=== PATIENT | male | born 1960 | race Caucasian/White ===

== ENCOUNTER → 2017-02-14 | Outpatient (CLI) | payer BC ==
[2017-02-14 19:51] LABS: Basophils % (A) 1 %; CH 33.5; CHCM 33.1; Eosinophils # (A) 0.1 k/uL (0-0.7); Eosinophils % (A) 1 %; HCT 45.4 % (39.0-53.0); HDW 2.27; HGB 15.2 gm/dL (13.0-17.5); Luc # (Auto) 0.13; Luc % (Auto) 4; Lymphocytes % (A) 29 %; MCH 34.1 pg (25.0-35.0); MCHC 33.6 g/dL (31.0-37.0); MCV 101.6 fL (80.0-100.0); Macrocytosis Slight; Mean Platelet Volume 7.6; Monocytes # (A) 0.3 k/uL (0-1.0); Monocytes % (A) 8 %; Neutrophils # (A) 1.9 k/uL (1.3-7.7); Neutrophils % (A) 57 %; RBC 4.47 m/uL (4.30-5.90); RDW 12.8 % (11.5-15.5); WBC 3.4 k/uL (3.8-10.6); WBC (Perox) 3.49
[2017-02-14 20:11] LABS: ALT 32 U/L (21-72); AST 22 U/L (17-59); Alkaline Phosphatase 72 U/L (38-126); Anion Gap 9 mmol/L; Blood Urea Nitrogen 15 mg/dL (9-20); Calcium 9.7 mg/dL (8.4-10.2); Carbon Dioxide 30 mmol/L (22-30); Chloride 101 mmol/L (98-107); Cholesterol 275 mg/dL (<200); Glucose 103 mg/dL (74-99); HDL Cholesterol 102 mg/dL (40-60); Non-African American GFR(MDRD) >60 (>60 ml/min/1.73 sqM); Potassium 4.6 mmol/L (3.5-5.1); Sodium 140 mmol/L (137-145); Total Bilirubin 1.2 mg/dL (0.2-1.3); Total Protein 6.9 g/dL (6.3-8.2); Triglycerides 91 mg/dL (<150)
== END ==
LOC: MMGSC 10:42
PROVIDERS: ATTEND Family Medicine
DX: Z00.00 Encounter for general adult medical examination without abnormal findings (principal); I10 Essential (primary) hypertension; Z12.5 Encounter for screening for malignant neoplasm of prostate
CPT/HCPCS: 84439; 80061; 80053; 84443; 85025; 36415; G0103

== ENCOUNTER → 2017-05-15 | Outpatient (CLI) | payer BC | END | disposition home or self-care (01) | LOC: MMGSC 15:19 | PROVIDERS: ATTEND Family Medicine | DX: N39.0 Urinary tract infection, site not specified (principal) | CPT/HCPCS: 87086 ==

== ENCOUNTER → 2017-05-16 | Outpatient (CLI) | payer BC ==
[2017-05-21 15:10] LABS: Anabasine Urine <2.0 ng/mL (<2.0)
== END | disposition home or self-care (01) ==
LOC: MMGSC 16:44
PROVIDERS: ATTEND Family Medicine
DX: Z13.9 Encounter for screening, unspecified (principal)
CPT/HCPCS: 80323

== ENCOUNTER 2018-02-18 12:00 | Day surgery (SDC) | payer BC ==
[2018-02-14 16:14] VITALS: BMI 23.6
[2018-02-18] MEDS: LACTATED RINGERS 1,000 ML IV SCH ×2 (13:30→13:48)
[2018-02-18 13:31] VITALS: RESP 16; TEMP 96.7
[2018-02-18] MEDS ORDERED: PROPOFOL 10 MG/ML 20 ML VIAL IV ONE (13:49)
--- NOTE | 2018-02-18 14:17 | P.PCN ---
Date of Procedure: 02/18/18 Procedure(s) Performed: Procedure: Esophagogastroduodenoscopy and biopsy. Preoperative diagnosis: Chronic reflux symptoms requiring PPI therapy. Postoperative diagnosis: 1. Small sliding hiatal hernia with no obvious esophagitis or complicated reflux disease. 2. Mild antral gastritis. 3. Multiple biopsies obtained from the duodenum, antrum and esophagus. Preparation sedation: Was provided by anesthesia. Brief clinical history: The patient is a 57-year-old male who is referred for this evaluation because of chronic reflux symptoms requiring PPI therapy. The patient had a colonoscopy with la for screening for neoplasia in January 2015 that revealed an adenomatous diminutive polyp in the cecum and he is due to have a repeat exam in 2019. He had no prior upper endoscopy. No other alarm symptoms. Procedure: With the patient on his left lateral decubitus position and after informed consent and adequate sedation, I passed the Olympus-GIF 160 video upper endoscope through the cricopharyngeus down the esophagus. GE junction was around 41 cm from the incisors and there was a small sliding hiatal hernia. The esophagus did not show any obvious erosions, ulcers, strictures or Boyd 's esophagus. The endoscope was then passed into the stomach which was insufflated with air and inspected in detail including the retroflex view in the cardia. There was some mottling and erythema in the antrum but no ulcers or erosions. Pyloric channel, duodenal bulb, post bulbar area and descending duodenum appeared within normal limits. Because of his symptoms, I obtained biopsies from the duodenum, antrum and esophagus then the endoscope was withdrawn. The patient tolerated the procedure well. Plan: The patient was reassured. He Will continue antireflux diet and measures and his current medical therapy and follow-up with you as planned. Further plans can be made based on his course and biopsy results. I will be happy to see in the office based on his course.
[2018-02-18 14:29] VITALS: PULSE 76
[2018-02-18 14:42] VITALS: BP 131/91
== END 2018-02-18 14:52 | disposition home or self-care (01) ==
LOC: ORWHC2ENDO 12:00
DX: K29.50 Unspecified chronic gastritis without bleeding (principal); K44.9 Diaphragmatic hernia without obstruction or gangrene; K21.9 Gastro-esophageal reflux disease without esophagitis; I47.1 Supraventricular tachycardia; Z87.891 Personal history of nicotine dependence; Z79.82 Long term (current) use of aspirin; Z79.891 Long term (current) use of opiate analgesic; Z79.899 Other long term (current) drug therapy
CPT/HCPCS: 88305; 43239; J2704

== ENCOUNTER 2018-05-01 10:15 | Observation (INO) | payer BC ==
[2018-04-29 10:23] VITALS: BMI 24.6
--- NOTE | 2018-04-30 20:24 | HP ---
HISTORY AND PHYSICAL DATE OF SURGERY: 05/01/2018 Eladio Lima is a 57-year-old patient seen with a displaced left ankle lateral malleolar fracture. I recommended open reduction, internal fixation. The procedure, risks, complications, benefits and recovery were discussed. He was agreeable. Consent was obtained. PAST MEDICAL HISTORY: Noncontributory. PAST SURGICAL HISTORY: Noncontributory. DAILY MEDICATIONS: None reported. ALLERGIES: NONE KNOWN. SOCIAL HISTORY: The patient denies tobacco use. PHYSICAL EVALUATION OF THE LEFT ANKLE: He has tenderness along the lateral malleolus. There is some swelling as well as some ecchymosis laterally. He has limited range of motion with pain. No tenderness along the medial malleolus. Achilles intact. Homans and Zachary negative. He is able to move his toes with no pain. Distal neurovascular exam is intact. Left ankle radiographs revealed a displaced lateral malleolar fracture. IMPRESSION: Displaced left ankle lateral malleolar fracture. PLAN: Open reduction, internal fixation, left ankle lateral malleolar fracture. MMJOON / MELISSAN: [id number] /
[~2018-05-01 10:15] MED LIST: ceFAZolin IN SWFI 2 GM/20 ML SYRINGE IVP ONE
[2018-05-01] MEDS ORDERED: LACTATED RINGERS 1,000 ML IV ONE (11:12)
[2018-05-01] MEDS ORDERED: LIDOCAINE 1% 20 ML VIAL (10MG/ML) FOR IV START INTRADERMA ONE (11:13)
[2018-05-01] MEDS ORDERED: ONDANSETRON 4 MG/2 ML VIAL ONE (11:18)
[2018-05-01] MEDS ORDERED: ONDANSETRON 4 MG/2 ML VIAL IVP ONE (11:20)
[2018-05-01] MEDS ORDERED: fentaNYL (PF) 50 MCG/ML 2 ML AMP ONE ×2 (11:23→12:26)
[2018-05-01] MEDS ORDERED: MIDAZOLAM 2 MG/2 ML VIAL ONE ×2 (11:23→12:26)
[2018-05-01] MEDS ORDERED: LIDOCAINE 1% INJ 10MG/ML (20 ML MDV) ONE ×3 (11:24→12:26)
[2018-05-01] MEDS ORDERED: fentaNYL (PF) 50 MCG/ML 2 ML AMP IVP ONE (11:57)
--- NOTE | 2018-05-01 11:59 | P.ONQ ---
Anesthesiology Proc Note - PNB - Peripheral Nerve Block Performed Left Adductor Canal Single Time Out Performed: Yes Indication: Dx/Pain Location (left ankle pain), Requested by physician Sedation Type: Awake Preparation: Sterile Prep Needle Types: On-Q Needle Size: 50mm (2") Technique: Ultrasound Injectate: Other (see comment) (7.5ml 0.5% Bupivacaine + 7.5ml 2% Lidocaince with 1:200,000 epi) Blood Aspirated: No Pain Paresthesia on Injection Noted: No Resistance on Injection: Normal Events: Uneventful and Well Tolerated
--- NOTE | 2018-05-01 12:02 | P.ONQ ---
Anesthesiology Proc Note - PNB - Peripheral Nerve Block Performed Left Popliteal Single Time Out Performed: Yes Procedure Start Time: 11:30 Indication: Analgesia, Dx/Pain Location (left ankle pain), Requested by physician Needle Size: 50mm (2") Technique: Ultrasound Injectate: Other (see comment) (15ml 0.5% Bupivacaine + 15ml 2% Lidocaine with 1 :200,000 epi) Blood Aspirated: No Pain Paresthesia on Injection Noted: No Resistance on Injection: Normal Events: Uneventful and Well Tolerated
[2018-05-01] MEDS ORDERED: PROPOFOL 10 MG/ML 20 ML VIAL IV ONE (12:26)
[2018-05-01] MEDS ORDERED: ceFAZolin 1,000 MG in SODIUM CHLORIDE 0.9% 1,000 ML IRRIGATION ONE (12:53)
[2018-05-01] MEDS ORDERED: ONDANSETRON 4 MG/2 ML VIAL IVP PRN ×2 (13:40→14:26)
[2018-05-01] MEDS ORDERED: HYDROcodone/APAP 5-325MG 1 EACH TAB PO PRN ×2 (13:40)
[2018-05-01] MEDS ORDERED: HYDROmorphone 0.5 MG/0.5 ML SYRINGE IVP PRN ×2 (13:40)
[2018-05-01] MEDS ORDERED: hydrOXYzine PAMOATE 25 MG CAP PO PRN (13:40)
--- NOTE | 2018-05-01 13:40 | P.OP ---
Date of Procedure: 05/01/18 Preoperative Diagnosis: Left ankle displaced lateral malleolar fracture Postoperative Diagnosis: Same Procedure(s) Performed: Open reduction and internal fixation left ankle lateral malleolus Implants: Synthes one third semitubular plate with 6 appropriate length screws Anesthesia: GETA, regional (Adductor canal block and popliteal block) Surgeon: Frederick Em Estimated Blood Loss (ml): 15 Pathology: none sent Condition: stable Indications for Procedure: 57-year-old patient seen with a displaced left ankle lateral malleolar fracture. After treatment options were discussed, he elected to proceed with recommended surgical intervention. Operative Findings: see description of procedure Description of Procedure: The patient was taken to the operative suite. The patient had received adductor canal and popliteal blocks. The patient underwent general anesthetic. A well-padded tourniquet placed proximal left lower extremity. The patient received preoperative IV box. The left lower extremity was prepped and draped in the normal sterile orthopedic fashion. The extremity was elevated and tourniquet insufflated to 300. An incision was made over the lateral malleolar sharply through skin. I dissected down to the lateral malleolus. Identify the displaced fracture. The hematoma was removed. The fracture was reduced and secured. I chose a 6 hole one third semitubular plate and appropriately contoured it with a plate pimentel. Enough fit nicely over the lateral malleolus. It was secured and appropriate drill holes were made through all 6 holes appropriate length screws were inserted all having good bite and purchase. The bone clamp was removed. I checked the entire construct under AP lateral and oblique intraoperative imaging and noted good anatomic alignment of fracture with good positioning of the hardware. I pain spot films to document this. The wound was irrigated with saline solution. The subcutaneous tissues were approximate 2-0 Vicryl. The skin is proximal skin jorge. Sterile dressings were applied. The tourniquet was released with immediate capillary refill the foot and all toes noted. I applied a modified bulky Berrios both ankle in neutral position. The patient was then awakened, transferred to a bed and then recovery in stable condition.
--- NOTE | 2018-05-01 13:43 | XR ---
Fluoroscopy History: ORIF LT ANKLE 3 SECS FL TIME. ORIF LT ANKLE. DR. DE LA O. 3 IMAGES SCANNED.
[2018-05-01] MEDS ORDERED: HYDROcodone/APAP 7.5-325MG 1 EACH TAB PO PRN (14:24)
[2018-05-01] MEDS: LACTATED RINGERS 1,000 ML IV SCH (15:08)
[2018-05-01] MEDS ORDERED: LORazepam 2 MG/ML INJ IV PRN ×3 (15:25)
[2018-05-01] MEDS ORDERED: THIAMINE 100 MG/ML 2 ML VIAL IM STA (15:25)
--- NOTE | 2018-05-01 15:28 | P.CONS ---
History of Present Illness - Reason for Consult Consult date: 05/01/18 SVT Requesting physician: Frederick Em - Chief Complaint ankle pain - History of Present Illness Patient is a 57-year-old male past medical history of GERD, SVT requiring cardioversion 2, and alcohol abuse who presented for elective left ankle ORIF. He had been playing catch on with his when he lost balance and heard a crack. He has been wearing a splint since then had surgery scheduled. He has SVT and has required cardioversion to of the 8 times with the last being in January of this year. He chronically takes verapamil. Patient seen and examined at bedside. He complains of left ankle pain that is worse when ambulating. He's been using crutches to ambulate. He has not been sick or ill recently. He denies any chest pain, shortness of breath, nausea, vomiting, diarrhea, constipation, or dysuria. He is not having any heart palpitations currently. He tolerated procedure well. He is currently pain- free and not having any nausea. He sees Dr. Velasquez saw her last just a few days ago for clearance. Review of Systems Positives: + Left ankle pain Pertinent positives and negatives as discussed in HPI, a complete review of systems was performed and all other systems are negative. Past Medical History Past Medical History: GERD/Reflux, Supraventricular Tachycardia (SVT) Additional Past Medical History / Comment(s): ANTIBIOTIC FOR ACNE., FX LEFT ANKLE -HAS SPLINT AND USING CRUTCHES. History of SVT has required cardioversion to opiate times he is on his SVT. History of Any Multi-Drug Resistant Organisms: None Reported Past Surgical History: No Surgical Hx Reported Additional Past Surgical History / Comment(s): some kind of surgery as a toddler -not sure what. COLONOSCOPY. ORIF left ankle Past Anesthesia/Blood Transfusion Reactions: No Reported Reaction Past Psychological History: No Psychological Hx Reported Smoking Status: Former smoker Past Alcohol Use History: Daily Additional Past Alcohol Use History / Comment(s): DRINKS 2 BEERS / DAILY Past Drug Use History: None Reported Additional History: Lives with his , works as an journeyman electrician, currently has been using crutches. - Past Family History Mother Family Medical History: Cancer, Coronary Artery Disease (CAD) Additional Family Medical History / Comment(s): PROSTATE CANCER X2, 4 vessel coronary artery bypass grafting Medications and Allergies Home Medications Medication Instructions Recorded Confirmed Type Aspirin EC [Ecotrin Low Dose] 81 mg PO DAILY 10/30/17 05/01/18 History HYDROcodone/APAP 7.5-325MG [[place] 1 tab PO QID PRN 10/30/17 05/01/18 History 7.5-325] Omeprazole 20 mg PO DAILY 10/30/17 05/01/18 History Verapamil HCl [Verapamil ER] 240 mg PO DAILY 12/21/17 05/01/18 History Cephalexin [Keflex] 500 mg PO Q12HR 04/29/18 05/01/18 History Ibuprofen [Advil] 400 mg PO DIRECTED PRN 04/29/18 05/01/18 History Naproxen (Unknown Dose) 1 tab PO DAILY PRN 04/29/18 05/01/18 History Allergies Allergy/AdvReac Type Severity Reaction Status Date / Time No Known Allergies Allergy Verified 05/01/18 11:05 Physical Exam Osteopathic Statement: *. No significant issues noted on an osteopathic structural exam other than those noted in the History and Physical/Consult. Vitals: Vital Signs Temp Pulse Resp BP Pulse Ox 05/01/18 14:18 82 14 120/80 97 05/01/18 14:03 82 14 136/79 96 05/01/18 13:48 78 14 114/73 97 05/01/18 13:33 74 16 109/62 100 05/01/18 12:00 92 16 124/83 97 05/01/18 11:10 98.0 F 98 16 153/90 98 Intake and Output 05/01/18 05/01/18 05/01/18 06:59 14:59 22:59 Intake Total 701 Output Total 15 Balance 686 Intake: IV 701 Output: Estimated Blood Loss 15 General: non toxic, no distress, appears at stated age, normal weight Derm: no unusual rashes/lesions no unusual ecchymoses, warm, dry, left ankle with dressing in place Head: atraumatic, normocephalic, symmetric Eyes: EOMI, no lid lag, anicteric sclera, pupils equal round reactive to light ENT: Nose and ears atraumatic, no thrush, no pharyngeal erythema Neck: No thyromegaly, no cervical lymphadenopathy, trachea midline, supple Mouth: no lip lesion, mucus membranes moist Cardiovascular: S1S2 reg, no murmur, positive posterior tibial pulse bilateral, no edema, capillary refill less than 2 seconds Lungs: CTA bilateral, no rhonchi, no rales , no accessory muscle use Abdominal: soft, nontender to palpation, no guarding, no appreciable organomegaly, normal bowel sounds Ext: no gross muscle atrophy, muscle strength 5 out of 5 in bilateral upper extremity and right lower extremity, unable to test left lower extremity due to recent surgery and nerve block, no contractures, Neuro: CN II-XI grossly intact, light touch intact bilateral first remedies and right lower extremity, light touch not intact left lower extremity but has abductor canal nerve block., finger to nose within normal limits, Psych: Alert, oriented, appropriate affect Results Labs: Labs reveal sodium 138, potassium 4.2, chloride 99, carbon dioxide 28, BUN 18, creatinine 1 White blood cell count 5.9, hemoglobin 15.9 hematocrit 47.9 platelets 339 Assessment and Plan Assessment: Left ankle fracture status post ORIF -Pain control -Orthopedic recommendations -PT/OT -DVT prophylaxis per orthopedic surgery SVT -Telemetry -Resume verapamil -Repeat electrolytes in a.m. prior to discharge GERD -Resume PPI Alcohol abuse -CIWA protocol Surrogate decision-maker: CODE STATUS:full DVT prophylaxis: scd Discussed with: Patient, nursing Anticipated discharge: 24-[address]: Home A total of 35 minutes was spent on the care of this complex patient more than 50 % of the time was spent in counseling and care coordination.
[2018-05-01] MEDS ORDERED: THIAMINE 100 MG TAB PO SCH (17:00)
[2018-05-01 19:24] VITALS: RESP 18
[2018-05-01] MEDS: ceFAZolin IN SWFI 2 GM/20 ML SYRINGE IVP SCH (20:24)
[2018-05-02 00:18] VITALS: BP 154/93; PULSE 76; TEMP 98.6
[2018-05-02] MEDS: HYDROmorphone 0.5 MG/0.5 ML SYRINGE IVP PRN ×3 (02:09→07:31)
[2018-05-02] MEDS: LACTATED RINGERS 1,000 ML IV SCH (02:10)
[2018-05-02] MEDS: ceFAZolin IN SWFI 2 GM/20 ML SYRINGE IVP SCH (04:27)
[2018-05-02] MEDS: HYDROcodone/APAP 7.5-325MG 1 EACH TAB PO PRN ×2 (05:28→10:30)
[2018-05-02 07:43] LABS: HCT 41.1 % (39.0-53.0); HGB 13.4 gm/dL (13.0-17.5); MCH 32.3 pg (25.0-35.0); MCHC 32.5 g/dL (31.0-37.0); MCV 99.4 fL (80.0-100.0); Mean Platelet Volume 6.6; Platelet Count 266 k/uL (150-450); RBC 4.13 m/uL (4.30-5.90); RDW 11.9 % (11.5-15.5); WBC 6.4 k/uL (3.8-10.6)
[2018-05-02 08:19] LABS: Anion Gap 10 mmol/L; Blood Urea Nitrogen 16 mg/dL (9-20); Calcium 9.1 mg/dL (8.4-10.2); Carbon Dioxide 32 mmol/L (22-30); Chloride 95 mmol/L (98-107); Glucose 118 mg/dL (74-99); Sodium 137 mmol/L (137-145)
[2018-05-02] MEDS ORDERED: PANTOPRAZOLE 40 MG TABLET PO SCH (09:00)
[2018-05-02] MEDS ORDERED: VERAPAMIL SR 240 MG TABLET.ER PO SCH (09:00)
--- NOTE | 2018-05-02 09:14 | P.PN ---
Subjective Progress Note Date: 05/02/18 Principal diagnosis: Ankle pain Patient is a 57-year-old male past medical history of GERD, SVT requiring cardioversion 2, and alcohol abuse who presented for elective left ankle ORIF. He had been playing catch on with his when he lost balance and heard a crack. He has been wearing a splint since then had surgery scheduled. He has SVT and has required cardioversion to of the 8 times with the last being in January of this year. He chronically takes verapamil. No issues overnight after surgery other than pain control when block wore off. Patient seen and examined at bedside. He denies any shortness of breath, chest pain or palpitations. He reports nausea that last about 10 minutes when he receives Dilaudid, but he has otherwise not been nauseous. He has no other complaints currently and is anxious to go home. Objective - Vital Signs Vital signs: Vital Signs Temp 98.6 F 05/02/18 00:17 Pulse 76 05/02/18 00:17 Resp 18 05/02/18 00:17 BP 154/93 05/02/18 00:17 Pulse Ox 98 05/02/18 00:17 Intake & Output 05/01/18 05/02/18 05/02/18 18:59 06:59 18:59 Intake Total 701 1280 Output Total 15 350 Balance 686 930 Intake: IV 701 Intake, IV Titration 1280 Amount Lactated Ringers 1,000 ml 1280 @ 80 mls/hr IV .[id number] RYAN Rx#:[id number] Output: Urine 350 Estimated Blood Loss 15 Other: # Voids 3 - Exam General: non toxic, no distress, appears at stated age Derm: warm, dry, left ankle with cast in place Head: atraumatic, normocephalic, symmetric Eyes: EOMI, no lid lag, anicteric sclera Cardiovascular: S1S2 reg, no murmur, positive posterior tibial pulse bilateral, Lungs: CTA bilateral, no rhonchi, no rales , no accessory muscle use Abdominal: soft, nontender to palpation, no guarding, no appreciable organomegaly Ext: no gross muscle atrophy, no edema right LE, no contractures Neuro: CN II-XI grossly intact, no focal neuro deficits, touch intact left toes able to move toes Psych: Alert, oriented, appropriate affect - Labs CBC & Chem 7: 05/02/18 07:12 05/02/18 07:12 Labs: Abnormal Lab Results - Last 24 Hours (Table) 05/02/18 Range/Units 07:12 RBC 4.13 L (4.30-5.90) m/uL Assessment and Plan Assessment: Left ankle fracture status post ORIF -Pain control -Orthopedic recommendations -PT/OT -DVT prophylaxis per orthopedic surgery - resume home ASA when okay with ortho SVT -D/C Telemetry -verapamil GERD - PPI Alcohol abuse -CIWA protocol Medically stable for discharge. Resume home verapamil and Omeprazole. Resume home ASA when Okay with ortho DVT prophylaxis: scd Discussed with: Patient, nursing Anticipated discharge: today Anticipated discharge place: Home A total of 20 minutes was spent on the care of this complex patient more than 50 % of the time was spent in counseling and care coordination.
--- NOTE | 2018-05-02 10:46 | P.PN ---
Subjective Progress Note Date: 05/02/18 Principal diagnosis: Status post ORIF left lateral malleolus fracture Patient exam today bedside, he is resting comfortably. Pain is currently controlled, he did have some increase in pain when the block initially wore off. Denies any chest pain or shortness of breath. Objective - Vital Signs Vital signs: Vital Signs Temp 98.6 F 05/02/18 00:17 Pulse 76 05/02/18 00:17 Resp 18 05/02/18 00:17 BP 154/93 05/02/18 00:17 Pulse Ox 98 05/02/18 00:17 Intake & Output 05/01/18 05/02/18 05/02/18 18:59 06:59 18:59 Intake Total 701 1280 Output Total 15 350 Balance 686 930 Intake: IV 701 Intake, IV Titration 1280 Amount Lactated Ringers 1,000 ml 1280 @ 80 mls/hr IV .[id number] RYAN Rx#:[id number] Output: Urine 350 Estimated Blood Loss 15 Other: # Voids 3 - Exam Left lower extremity: Postop splint is in good position and condition, he is able to wiggle the toes. His sensation to light touch both proximal distal to the cast is intact. His cap refills less than 2 seconds. - Labs CBC & Chem 7: 05/02/18 07:12 05/02/18 07:12 Labs: Abnormal Lab Results - Last 24 Hours (Table) 05/02/18 05/02/18 Range/Units 07:12 07:12 RBC 4.13 L (4.30-5.90) m/uL Chloride 95 L (98-107) mmol/L Carbon Dioxide 32 H (22-30) mmol/L Glucose 118 H (74-99) mg/dL Assessment and Plan Plan: Assessment: Postoperative day #1 status post ORIF left lateral malleolus fracture Plan: Pain control, we'll continue supportive oral medication GI and DVT prophylaxis, aspirin 325 mg once daily after discharge Weightbearing restrictions were discussed Cast instructions were discussed Stable for discharge today, will follow-up in the outpatient setting in 2 weeks Time with Patient: Less than 30
--- NOTE | 2018-05-02 10:51 | P.DS ---
Providers Date of admission: 05/02/18 06:25 Expected date of discharge: 05/02/18 Attending physician: Frederick Em Consults: 05/01/18 14:22 Consult Physician Routine Consulting Provider: Rosaura Orta Consult Reason/Comments: medical management Do you want consulting provider notified?: Yes Primary care physician: Yanira [facility] Course: Date of admission: 05/01/2018 Date of discharge: 05/02/2018 Admission diagnosis: Status post ORIF left lateral ankle fracture Discharge diagnosis: Same Attending physician: Dr. Em Surgical procedures: Open reduction internal fixation left lateral malleolus ankle fracture Brief history: Patient is a 57-year-old male who was evaluated in the outpatient setting by Dr. Em for a left ankle injury. It was determined the patient had a displaced lateral malleolus fracture involving the left ankle , treatment options were discussed. Patient decided to proceed with surgical treatment, patient was scheduled for surgery for 05/01/2018. Hospital course: Details of patient's surgery can be found in operative report. Patient tolerated the procedure well and was subsequently transported to orthopedic floor. Patient's orthopeidc and medical care was provided daily. Patient had daily laboratory tests performed for evaluation of overall blood counts. Patient was noted to have a relatively uneventful postoperative course. Patient reported satisfactory pain control with oral pain medications by postoperative day 0. Patient showed satisfactory progress with physical therapy. Patient moved steadily through the program and had no difficulty meeting the goals by postoperative day 1. Given patient's otherwise satisfactory course and having met physical therapy goals, plan is to discharge patient home on postoperative day 1. Discharge condition/disposition: Patient will be discharged home in stable condition. Discharge medications: Instructions are given on resumption of patient's normal daily medications per primary care recommendation, in addition patient will be prescribed [place] 7.5 mg/325 mg, aspirin 325 mg. Discharge instructions: 1. Wound care and infection precautions, keep incision dry and covered while showering, no lotions, creams, moisturizers. No soaking, tubs, pools, hottubs. Do not scrub over the incision. 2. Nonweightbearing left lower extremity, utilize crutches 3. Ice and elevate when necessary. Do not exceed 20 minutes per hour with ice pack. 5. Follow up in office at 2 weeks postop with Juanpablo García PA-C 6. Follow up with your primary care doctor 7-10 days after discharge. 7. Contact [facility] with any questions, . Procedures: Open reduction internal fixation left lateral malleolus ankle fracture Patient Condition at Discharge: Good Plan - Discharge Summary Discharge Rx Participant: Yes New Discharge Prescriptions: New Verapamil Sr [Isoptin Sr] 240 mg PO DAILY tablet.er HYDROcodone/APAP 7.5-325MG [[place] 7.5] 1 - 2 each PO Q6HR PRN #40 tab PRN Reason: Pain Aspirin 325 mg PO DAILY #30 tab Continue Omeprazole 20 mg PO DAILY Discontinued Verapamil HCl [Verapamil ER] 240 mg PO DAILY No Action Aspirin EC [Ecotrin Low Dose] 81 mg PO DAILY Ibuprofen [Advil] 400 mg PO Q6H PRN PRN Reason: Pain Cephalexin [Keflex] 500 mg PO Q12HR Naproxen [Naproxen] 500 mg PO DAILY PRN PRN Reason: Pain Discharge Medication List Aspirin EC [Ecotrin Low Dose] 81 mg PO DAILY 10/30/17 [History] Omeprazole 20 mg PO DAILY 10/30/17 [History] Cephalexin [Keflex] 500 mg PO Q12HR 04/29/18 [History] Ibuprofen [Advil] 400 mg PO Q6H PRN 04/29/18 [History] Aspirin 325 mg PO DAILY #30 tab 05/02/18 [Rx] HYDROcodone/APAP 7.5-325MG [[place] 7.5] 1 - 2 each PO Q6HR PRN #40 tab 05/02/18 [ Rx] Naproxen [Naproxen] 500 mg PO DAILY PRN 05/02/18 [History] Verapamil Sr [Isoptin Sr] 240 mg PO DAILY tablet.er 05/02/18 [Rx] Follow up Appointment(s)/Referral(s): Yanira Velasquez MD [Primary Care Provider] - 05/20/18 1:45 pm Freddie García PAC [PHYSICIAN TECHNICAL ACCOUNT REPRESENTATIVE] - 05/17/18 8:30 am Activity/Diet/Wound Care/Special Instructions: Discharge instructions: Nonweightbearing left lower extremity Utilize crutches when ambulating Pain medication as needed Aspirin 325 mg daily for DVT prophylaxis Discharge Disposition: HOME SELF-CARE
[2018-05-02] MEDS ORDERED: FOLIC ACID 1 MG TAB PO SCH (12:00)
== END 2018-05-02 11:37 | disposition home or self-care (01) ==
LOC: OR 10:15 → 3SUR 14:09 → OR 05-02 06:25 → 3SUR 05-02 06:25
PROVIDERS: ADMIT Orthopaedic Surgery; ATTEND Orthopaedic Surgery
DX: S82.62XA Displaced fracture of lateral malleolus of left fibula, initial encounter for closed fracture (principal); I47.1 Supraventricular tachycardia; K21.9 Gastro-esophageal reflux disease without esophagitis; L70.9 Acne, unspecified; F10.10 Alcohol abuse, uncomplicated; R11.0 Nausea; T40.2X5A Adverse effect of other opioids, initial encounter; X50.1XXA Overexertion from prolonged static or awkward postures, initial encounter; Z79.82 Long term (current) use of aspirin; Z79.2 Long term (current) use of antibiotics; Z79.899 Other long term (current) drug therapy; Z87.891 Personal history of nicotine dependence; Z80.42 Family history of malignant neoplasm of prostate; Z82.49 Family history of ischemic heart disease and other diseases of the circulatory system
CPT/HCPCS: 27792; 80048; 85027; 73610; G0378; C1713; J2250; J2405; J0690 ×3; J2001; J3010; J2704; J1170

== ENCOUNTER → 2019-04-28 | Outpatient (CLI) | payer BC ==
[2019-04-28 15:52] LABS: Basophils % (A) 1 %; Eosinophils % (A) 1 %; HGB 13.8 gm/dL (13.0-17.5); Lymphocytes # (A) 1.3 k/uL (1.0-4.8); Lymphocytes % (A) 27 %; MCH 32.4 pg (25.0-35.0); MCHC 33.6 g/dL (31.0-37.0); MCV 96.4 fL (80.0-100.0); Mean Platelet Volume 6.8; Monocytes # (A) 0.4 k/uL (0-1.0); Monocytes % (A) 8 %; Neutrophils # (A) 2.9 k/uL (1.3-7.7); Neutrophils % (A) 60 %; Platelet Count 356 k/uL (150-450); RBC 4.26 m/uL (4.30-5.90); RDW 12.9 % (11.5-15.5); WBC 4.8 k/uL (3.8-10.6)
[2019-04-28 15:53] LABS: Potassium 4.1 mmol/L (3.5-5.1)
== END ==
LOC: LABWHC1 15:30
PROVIDERS: ATTEND Orthopaedic Surgery
DX: Z01.812 Encounter for preprocedural laboratory examination (principal); T84.89XD Other specified complication of internal orthopedic prosthetic devices, implants and grafts, subsequent encounter
CPT/HCPCS: 36415; 80051; 85025

== ENCOUNTER → 2019-05-01 | Day surgery (SDC) | payer BC ==
[2019-04-29 08:49] VITALS: BMI 24.6
[~2019-05-01] MED LIST changes: +BUPIVACAINE (PF) 0.5% 30 ML VIAL SQ ONE; +DEXAMETHASONE SOD PHOSPHATE 10 MG/ML 1 ML VIAL IV ONE; +DEXAMETHASONE SOD PHOSPHATE 4 MG/ML 1 ML VIAL ONE; +HYDROmorphone 0.5 MG/0.5 ML SYRINGE IVP PRN; +LACTATED RINGERS 1,000 ML IV SCH; +LIDOCAINE 1% 20 ML VIAL (10MG/ML) FOR IV START INTRADERMA PRN; +LIDOCAINE 1% INJ 10MG/ML (20 ML MDV) ONE; +MIDAZOLAM 2 MG/2 ML VIAL IV PRN; +MIDAZOLAM 2 MG/2 ML VIAL ONE; +ONDANSETRON 4 MG/2 ML VIAL IVP ONE; +PROPOFOL 10 MG/ML 20 ML VIAL IV ONE; +ROPIVACAINE 5 MG/ML 30 ML VIAL ONE; +SCOPOLAMINE 1.5MG/72HR PATCH TRANSDERM ONE; +ceFAZolin 1,000 MG in SODIUM CHLORIDE 0.9% 1,000 ML IRRIGATION ONE; +fentaNYL (PF) 50 MCG/ML 2 ML AMP IV ONE; +fentaNYL (PF) 50 MCG/ML 2 ML AMP ONE
[2019-05-01 10:54] VITALS: RESP 16
--- NOTE | 2019-05-01 12:52 | P.OP ---
Date of Procedure: 05/01/19 Preoperative Diagnosis: Irritating internal fixation left ankle Postoperative Diagnosis: Irritating internal fixation left ankle Procedure(s) Performed: Removal irritating internal fixation left ankle Anesthesia: OLIVA, local Surgeon: Frederick Em Estimated Blood Loss (ml): 4 Pathology: none sent Condition: stable Disposition: PACU Indications for Procedure: 58-year-old patient seen with the retaining internal fixation left ankle. After treatment options were discussed with him, he elected to proceed with removal of his irritating internal fixation. Operative Findings: See description of procedure Description of Procedure: The patient was taken to the operative suite. The patient underwent a general anesthetic by the department of anesthesia. A well-padded tourniquet placed proximal left lower extremity. The left lower extremity was prepped and draped in the normal sterile orthopedic fashion. The extremity is elevated and tourniquet insufflated to 300. An incision was made over the previous cicatrix sharply through skin. Dissection taken down to the hardware. Wilton louie assisted by retracting the soft tissues well exposed the hardware. All 6 screws and the plate were removed without difficulty. The fracture. Well-healed. The wound was irrigated with normal sitting solution. The subcu soft tissues were repaired with 2-0 Vicryl. The skin was approximated with nylon suture. The subcu soft tissues were infiltrated with local analgesic. Sterile dressings were applied. The tourniquet was released and immediate capillary refill noted. Sterile dressings were applied. The patient was awakened and transferred to recovery having entire procedure well. Juanpablo BRAXTON assisted with the procedure.
--- NOTE | 2019-05-01 12:52 | P.ONQ ---
Anesthesiology Proc Note - PNB - Peripheral Nerve Block Performed Left Popliteal Single Time Out Performed: Yes Procedure Start Time: :18 Procedure Stop Time: Indication: Acute Post-Operative Pain, Requested by physician Sedation Type: Sedate with meaningful contact maintained Preparation: Sterile Dressing Position: Supine Catheter: None Needle Types: On-Q Needle Size: 100mm (4") Needle Gauge: 21 Injectate: 0.5% Ropivacaine (see comment for volume) (20 ml decadron 10 mg)
[2019-05-01 12:53] VITALS: TEMP 97.5
[2019-05-01 14:30] VITALS: BP 116/68; PULSE 80
== END | disposition home or self-care (01) ==
LOC: OR 09:49
PROVIDERS: ATTEND Orthopaedic Surgery
DX: T84.84XA Pain due to internal orthopedic prosthetic devices, implants and grafts, initial encounter (principal); I47.1 Supraventricular tachycardia; Z87.891 Personal history of nicotine dependence; K21.9 Gastro-esophageal reflux disease without esophagitis; Z79.1 Long term (current) use of non-steroidal anti-inflammatories (NSAID); Z79.891 Long term (current) use of opiate analgesic; Z79.899 Other long term (current) drug therapy
CPT/HCPCS: 64445; 20680; J2250; J1100 ×2; J2405; J0690 ×2; J2001; J3010; J2795; J2704

== ENCOUNTER 2019-10-11 20:10 | Emergency (ER) | payer BC ==
[2019-10-11 20:14] VITALS: TEMP 97.9
[2019-10-11] MEDS ORDERED: SODIUM CHLORIDE 0.9% 1,000 ML IV STA (20:24)
[2019-10-11] MEDS ORDERED: ADENOSINE 3 MG/ML 2 ML VIAL IVP STA ×2 (20:24)
[2019-10-11] MEDS: DILTIAZEM 5 MG/ML 5 ML VIAL IVP STA ×2 (20:30→21:04)
--- NOTE | 2019-10-11 20:44 | ED ---
Arrhythmia/Palpitations HPI - General Chief Complaint: Arrhythmia/Palpitations Stated Complaint: Palpitations Time Seen by Provider: 10/11/19 20:17 Source: patient Mode of arrival: ambulatory Limitations: no limitations - History of Present Illness Initial Comments: 58-year-old male patient with past medical history significant for SVT presents to the emergency department today for evaluation of palpitations and on feeling in his chest. Patient states this feels similar to his previous episodes of SVT. States he did take 240 mg of verapamil this morning and another 240 mg of verapamil one hour ago. Patient denies any chest pain or shortness of breath. Denies nausea or vomiting. Denies numbness or tingling to his extremities. Denies any changes to his medications recently. He is unsure who his software test automation engineer is. States that they were trying medical management prior to ablation therapy. Denies any alcohol or drug use. Denies any excessive caffeine intake. Patient denies any recent rash, fever, chills, abdominal pain, nausea, vomiting, diarrhea, constipation, back pain, numbness, tingling, dizziness, weakness, hematuria, dysuria, urinary urgency, urinary frequency, headache, visual changes, or any other complaints. - Related Data Home Medications Medication Instructions Recorded Confirmed Omeprazole 20 mg PO DAILY 10/30/17 10/11/19 HYDROcodone/APAP 7.5-325MG [[place] 1 tab PO Q6H PRN 04/29/19 10/11/19 7.5-325] Lisinopril-Hctz 20-25 mg 1 tab PO DAILY 04/29/19 10/11/19 [Zestoretic 20-25] Previous Rx's Medication Instructions Recorded Verapamil Sr [Isoptin Sr] 240 mg PO DAILY tablet.er 05/02/18 Allergies Allergy/AdvReac Type Severity Reaction Status Date / Time No Known Allergies Allergy Verified 10/11/19 22:15 Review of Systems ROS Statement: Those systems with pertinent positive or pertinent negative responses have been documented in the HPI. ROS Other: All systems not noted in ROS Statement are negative. Past Medical History Past Medical History: GERD/Reflux, Supraventricular Tachycardia (SVT) Additional Past Medical History / Comment(s): ANTIBIOTIC FOR ACNE., FX LEFT ANKLE -HAS SPLINT AND USING CRUTCHES. History of SVT has required cardioversion to opiate times he is on his SVT. History of Any Multi-Drug Resistant Organisms: None Reported Past Surgical History: No Surgical Hx Reported Additional Past Surgical History / Comment(s): some kind of surgery as a toddler-not sure what. COLONOSCOPY. ORIF left ankle Past Anesthesia/Blood Transfusion Reactions: No Reported Reaction Past Psychological History: No Psychological Hx Reported Smoking Status: Former smoker - Past Family History Mother Family Medical History: Cancer, Coronary Artery Disease (CAD) Additional Family Medical History / Comment(s): PROSTATE CANCER X2, 4 vessel coronary artery bypass grafting General Exam Limitations: no limitations General appearance: alert, in no apparent distress, other (This is a well- developed, well-nourished adult male patient in no acute distress. Vital signs upon presentation are temperature 97.9F, pulse 171, respirations 20, blood pressure 129/86, pulse ox 99% on room air.) Eye exam: Present: normal appearance, PERRL, EOMI. Absent: scleral icterus, conjunctival injection, periorbital swelling ENT exam: Present: normal exam, normal oropharynx, mucous membranes moist Respiratory exam: Present: normal lung sounds bilaterally. Absent: respiratory distress, wheezes, rales, rhonchi, stridor Cardiovascular Exam: Present: regular rate, normal rhythm, normal heart sounds. Absent: systolic murmur, diastolic murmur, rubs, gallop, clicks GI/Abdominal exam: Present: soft, normal bowel sounds. Absent: distended, tenderness, guarding, rebound, rigid Neurological exam: Present: alert, oriented X3, CN II-XII intact Psychiatric exam: Present: normal affect, normal mood Skin exam: Present: warm, dry, intact, normal color. Absent: rash Course Vital Signs 10/11/19 10/11/19 10/11/19 20:12 21:01 21:44 Temperature 97.9 F Pulse Rate 171 H 87 71 Respiratory 20 18 18 Rate Blood Pressure 129/86 117/95 114/79 O2 Sat by Pulse 99 99 98 Oximetry 10/11/19 23:03 Temperature 97.9 F Pulse Rate 79 Respiratory 18 Rate Blood Pressure 110/75 O2 Sat by Pulse 97 Oximetry - Reevaluation(s) Reevaluation #1: 10/11/19 20:44 Prior to administration of any medication patient converted to normal sinus rhythm. We will monitor her heart rhythm and review labs. Patient is feeling better at this time. EKG Findings - EKG Comments: EKG Findings:: EKG obtained at 2018 shows supraventricular Tachycardia with an incomplete right bundle branch block. Ventricular rate is 160, QRS duration 104, QT 302, QTc 492. No evidence of ST elevation or depression. EKG #2 ob tained at 2032 shows normal sinus rhythm with right axis deviation. Ventricular rate is 91, MA interval 146, QRS duration 96, QT 362, QTc 445. No evidence of ST elevation or depression. Medical Decision Making - Medical Decision Making 58-year-old male patient presents to the emergency department today for evaluation of palpitations. EKG demonstrated the presence of supraventricular tachycardia. We were going to administer Cardizem IV push however patient converted to normal sinus rhythm without medication. We did perform labs which were unremarkable. Repeat EKG showed normal sinus rhythm. He had no further episodes of SVT while in the department. Upon reevaluation he is feeling better. We'll discharge home to follow-up with his software test automation engineer for further evaluation. Return parameters discussed in detail. He verbalizes understanding and agrees with this plan. - Lab Data Result diagrams: 10/11/19 20:22 10/11/19 20:22 Lab Results 10/11/19 10/11/19 10/11/19 Range/Units 20:22 20:22 20:22 WBC 8.7 (3.8-10.6) k/uL RBC 4.88 (4.30-5.90) m/uL Hgb 16.1 (13.0-17.5) gm/dL Hct 47.5 (39.0-53.0) % MCV 97.4 (80.0-100.0) fL MCH 33.1 (25.0-35.0) pg MCHC 34.0 (31.0-37.0) g/dL RDW 11.0 L (11.5-15.5) % Plt Count 378 (150-450) k/uL Neutrophils % 49 % Lymphocytes % 39 % Monocytes % 5 % Eosinophils % 2 % Basophils % 1 % Neutrophils # 4.2 (1.3-7.7) k/uL Lymphocytes # 3.4 (1.0-4.8) k/uL Monocytes # 0.5 (0-1.0) k/uL Eosinophils # 0.2 (0-0.7) k/uL Basophils # 0.1 (0-0.2) k/uL PT 9.6 (9.0-12.0) sec INR 0.9 (<1.2) APTT 26.5 (22.0-30.0) sec Sodium 132 L (137-145) mmol/L Potassium 3.9 (3.5-5.1) mmol/L Chloride 93 L (98-107) mmol/L Carbon Dioxide 27 (22-30) mmol/L Anion Gap 12 mmol/L BUN 9 (9-20) mg/dL Creatinine 0.87 (0.66-1.25) mg/dL Est GFR (CKD-EPI)AfAm >90 (>60 ml/min/1.73 sqM) Est GFR (CKD-EPI)NonAf >90 (>60 ml/min/1.73 sqM) Glucose 98 (74-99) mg/dL Calcium 9.5 (8.4-10.2) mg/dL Magnesium 2.0 (1.6-2.3) mg/dL Total Bilirubin 0.3 (0.2-1.3) mg/dL AST 23 (17-59) U/L ALT 28 (21-72) U/L Alkaline Phosphatase 81 (38-126) U/L Troponin I (0.000-0.034) ng/mL Total Protein 7.7 (6.3-8.2) g/dL Albumin 4.7 (3.5-5.0) g/dL TSH 2.760 (0.465-4.680) mIU/L 10/11/19 Range/Units 20:22 WBC (3.8-10.6) k/uL RBC (4.30-5.90) m/uL Hgb (13.0-17.5) gm/dL Hct (39.0-53.0) % MCV (80.0-100.0) fL MCH (25.0-35.0) pg MCHC (31.0-37.0) g/dL RDW (11.5-15.5) % Plt Count (150-450) k/uL Neutrophils % % Lymphocytes % % Monocytes % % Eosinophils % % Basophils % % Neutrophils # (1.3-7.7) k/uL Lymphocytes # (1.0-4.8) k/uL Monocytes # (0-1.0) k/uL Eosinophils # (0-0.7) k/uL Basophils # (0-0.2) k/uL PT (9.0-12.0) sec INR (<1.2) APTT (22.0-30.0) sec Sodium (137-145) mmol/L Potassium (3.5-5.1) mmol/L Chloride (98-107) mmol/L Carbon Dioxide (22-30) mmol/L Anion Gap mmol/L BUN (9-20) mg/dL Creatinine (0.66-1.25) mg/dL Est GFR (CKD-EPI)AfAm (>60 ml/min/1.73 sqM) Est GFR (CKD-EPI)NonAf (>60 ml/min/1.73 sqM) Glucose (74-99) mg/dL Calcium (8.4-10.2) mg/dL Magnesium (1.6-2.3) mg/dL Total Bilirubin (0.2-1.3) mg/dL AST (17-59) U/L ALT (21-72) U/L Alkaline Phosphatase (38-126) U/L Troponin I <0.012 (0.000-0.034) ng/mL Total Protein (6.3-8.2) g/dL Albumin (3.5-5.0) g/dL TSH (0.465-4.680) mIU/L - Radiology Data Radiology results: report reviewed, image reviewed Two-view x-ray of the chest was obtained. Report was reviewed in its entirety. Impression by Dr. Wallace shows normal chest. No change. Disposition Clinical Impression: Supraventricular tachycardia Disposition: HOME SELF-CARE Condition: Good Instructions (If sedation given, give patient instructions): Supraventricular Tachycardia (ED) Additional Instructions: Increase fluids. Take medications as directed. Follow-up with your primary care physician and software test automation engineer for further evaluation as soon as possible. Return to the emergency department immediately for any new, worsening, or concerning symptoms. Is patient prescribed a controlled substance at d/c from ED?: No Referrals: Yanira Velasquez MD [Primary Care Provider] - 1-2 days Time of Disposition: 22:35
[2019-10-11 20:49] LABS: Basophils # (A) 0.1 k/uL (0-0.2); Basophils % (A) 1 %; Eosinophils # (A) 0.2 k/uL (0-0.7); Eosinophils % (A) 2 %; HCT 47.5 % (39.0-53.0); HGB 16.1 gm/dL (13.0-17.5); Lymphocytes # (A) 3.4 k/uL (1.0-4.8); Lymphocytes % (A) 39 %; MCH 33.1 pg (25.0-35.0); MCV 97.4 fL (80.0-100.0); Mean Platelet Volume 5.8; Monocytes # (A) 0.5 k/uL (0-1.0); Monocytes % (A) 5 %; Neutrophils # (A) 4.2 k/uL (1.3-7.7); Neutrophils % (A) 49 %; Platelet Count 378 k/uL (150-450); RBC 4.88 m/uL (4.30-5.90); WBC 8.7 k/uL (3.8-10.6)
[2019-10-11 20:53] LABS: ALT 28 U/L (21-72); AST 23 U/L (17-59); African American GFR (CKD) >90 (>60 ml/min/1.73 sqM); Albumin 4.7 g/dL (3.5-5.0); Alkaline Phosphatase 81 U/L (38-126); Anion Gap 12 mmol/L; Blood Urea Nitrogen 9 mg/dL (9-20); Calcium 9.5 mg/dL (8.4-10.2); Carbon Dioxide 27 mmol/L (22-30); Chloride 93 mmol/L (98-107); Glucose 98 mg/dL (74-99); Potassium 3.9 mmol/L (3.5-5.1); Sodium 132 mmol/L (137-145); Total Bilirubin 0.3 mg/dL (0.2-1.3); Total Protein 7.7 g/dL (6.3-8.2)
[2019-10-11 20:54] LABS: INR 0.9 (<1.2); Partial Thromboplastin Time 26.5 sec (22.0-30.0); Prothrombin Time 9.6 sec (9.0-12.0)
--- NOTE | 2019-10-11 20:58 | XR ---
EXAMINATION TYPE: XR chest 2V DATE OF EXAM: 10/11/2019 COMPARISON: 10/30/2017 HISTORY: Dysrhythmia TECHNIQUE: Frontal and lateral views of the chest are obtained. FINDINGS: Heart and mediastinum are normal. Lungs are clear. Diaphragm is normal. Bony thorax appear s normal. IMPRESSION: Normal chest. No change.
[2019-10-11 21:03] VITALS: RESP 18
[2019-10-11 23:03] VITALS: BP 110/75; PULSE 79
== END 2019-10-11 23:03 | disposition home or self-care (01) ==
LOC: EC 20:10
DX: I47.1 Supraventricular tachycardia (principal); K21.9 Gastro-esophageal reflux disease without esophagitis; Z79.899 Other long term (current) drug therapy; Z99.89 Dependence on other enabling machines and devices; Z87.891 Personal history of nicotine dependence; Z82.49 Family history of ischemic heart disease and other diseases of the circulatory system
CPT/HCPCS: 36415; 71046; 80053; 83735; 84443; 84484; 85025; 85610; 85730; 93005; 96360; 99285

== ENCOUNTER → 2020-04-29 | Outpatient (CLI) | payer BC | END | disposition home or self-care (01) | LOC: LABWHC1 07:44 | PROVIDERS: ATTEND Family Medicine | DX: R19.7 Diarrhea, unspecified (principal); R11.10 Vomiting, unspecified ==

== ENCOUNTER → 2020-08-16 | Outpatient (CLI) | payer BC ==
--- NOTE | 2020-08-16 16:43 | CT ---
EXAMINATION TYPE: CT lumbar spine wo con DATE OF EXAM: 08/16/2020 COMPARISON: Plain film 07/23/2020 HISTORY: Spondylolisthesis, low back pain with trauma CT DLP: 445.1 mGycm Automated exposure control for dose reduction was used. An unenhanced CT of the lumbar spine was performed. Bone and soft tissue window settings are submitt ed as well as coronal and sagittal reconstructions. FINDINGS: Bilateral spondylolysis at L5 is again noted, anterolisthesis grade 1 is present. There is associated loss of disc height. There is bilateral foraminal encroachment due to the listhesis. No disc herniat ion. Spinal curvature is also present, S-shaped lumbar scoliosis. There is no significant spinal stenosis. L4-5 shows a minimal posterior disc bulge. Minimal retrolisthesis grade 1 L4-5, broad-based disc bulg e causes slight anterior mass effect on the thecal sac. Circumferential extension of disc may cause s ome minimal foraminal encroachment on the left possibly contributed by the spinal curvature. L3-4: Posterior broad-based disc bulge causes anterior mass effect on the thecal sac and mild central stenosis. Minimal foraminal encroachment L2-3: Posterior disc bulge causes minimal anterior mass effect on the thecal sac and is eccentric tow ards the left causing some foraminal encroachment, anterolateral mass effect on the thecal sac. No si gnificant spinal stenosis. L1-2: Within normal limits Multiple punctate nonobstructive calculi noted within the kidneys. IMPRESSION: Spondylolysis, spondylolisthesis, degenerative disc disease. Nonobstructive renal calculi.
== END | disposition home or self-care (01) ==
LOC: RADCTMAIN 15:35
PROVIDERS: ATTEND Orthopaedic Surgery
DX: M51.36 Other intervertebral disc degeneration, lumbar region (principal); M43.16 Spondylolisthesis, lumbar region; M47.816 Spondylosis without myelopathy or radiculopathy, lumbar region
CPT/HCPCS: 72131

== ENCOUNTER → 2020-08-18 | Outpatient (CLI) | payer BC ==
--- NOTE | 2020-08-18 22:32 | MR ---
EXAMINATION TYPE: MR lumbar spine wo con DATE OF EXAM: 08/18/2020 COMPARISON: None HISTORY: Low Back Pain CONTRAST: 0 mL intravenous Gadavist. TECHNIQUE: Multiplanar, multisequence images of the lumbar spine were acquired. FINDINGS: L5-S1: There is a grade 1 spondylolisthesis of L5 anterior on S1. Posterior disc space narrowing is p resent. Disc uncovering is present with anterior thecal sac contact. No AP spinal canal stenosis is p resent. Hemangiomas within the L5 vertebral level. Severe bilateral foraminal stenosis is present. L4-L5: No significant disc bulge or disc herniation. No spinal canal stenosis. No foraminal stenosi s. Facet hypertrophy is present.. L3-L4: Right paracentral disc bulging is present. This has mild anterior thecal sac compression. Kristine elate for right radicular symptoms. No AP spinal canal stenosis is present. Neural foramen are patent . Mild facet hypertrophy is present. L2-L3: Broad-based disc bulge is present. This may be slightly greater into the left paracentral kaden on. This has mild to moderate anterior thecal sac compression. No AP spinal canal stenosis present. F acet hypertrophy is present with mild posterior lateral thecal sac compression. L1-L2: No significant disc bulge or disc herniation. No spinal canal stenosis. No foraminal stenosi s. T12-L1: No significant disc bulge or disc herniation. No spinal canal stenosis. No foraminal stenos is. IMPRESSION: 1. Left paracentral disc bulging L2-3 mild to moderate anterior thecal sac compression. 2. Right paracentral disc bulging with mild to moderate anterior thecal sac compression L3-4. 3. Grade 1 spondylolisthesis of L5 anterior on S1
== END | disposition home or self-care (01) ==
LOC: RADMRIMAIN 16:39
PROVIDERS: ATTEND Orthopaedic Surgery
DX: M51.26 Other intervertebral disc displacement, lumbar region (principal); M43.16 Spondylolisthesis, lumbar region
CPT/HCPCS: 72148

== ENCOUNTER 2023-02-21 05:39 | Day surgery (SDC) | payer BC ==
[2023-02-16 12:32] VITALS: BMI 24.3
--- NOTE | 2023-02-20 13:26 | HP ---
HISTORY AND PHYSICAL DATE OF SURGERY: 02/21/2023 HISTORY OF PRESENT ILLNESS: Eladio Lima is a 62-year-old gentleman seen with progressive right shoulder pain. We discussed options for treatment. He elected to proceed with right shoulder arthroscopy. Consent regarding the procedure was obtained. PAST MEDICAL HISTORY: Hypertension. PAST SURGICAL HISTORY: Noncontributory. DAILY MEDICATIONS: 1. Lisinopril. 2. Verapamil. 3. Ibuprofen. ALLERGIES: None. SOCIAL HISTORY: He denies current tobacco use. PHYSICAL EVALUATION OF RIGHT SHOULDER: Flexion is 150 degrees, abduction is 140 degrees, external rotation is 40 degrees with some weakness and pain. He is tender along the anterior lateral acromion. Acromioclavicular joint as well as rotator cuff insertion site impingement is positive at 90 degrees. Drop-arm sign is positive. Distal neurovascular exam is intact. RADIOGRAPHS: Radiographs of the right shoulder revealed a type 2 acromion, severe acromioclavicular joint osteoarthritis and cystic changes of the greater tuberosity. An MRI of the right shoulder revealed a partial rotator cuff tear, labral tear as well as significant acromioclavicular joint osteoarthritis. IMPRESSION: 1. Right shoulder impingement with partial rotator cuff tear. 2. Right shoulder labral tear. 3. Right shoulder acromioclavicular joint osteoarthritis. PLAN: Right shoulder arthroscopy with subacromial decompression, possible arthroscopic rotator cuff repair, labral debridement versus repair, Radha procedure. MMODL / IJN: [id number] /
[2023-02-21] MEDS ORDERED: DEXAMETHASONE SOD PHOSPHATE 4 MG/ML 1 ML VIAL IV ONE (06:13)
[2023-02-21] MEDS ORDERED: ONDANSETRON 4 MG/2 ML VIAL IVP ONE (06:13)
[2023-02-21] MEDS ORDERED: SCOPOLAMINE 1 MG/72 HR PATCH TRANSDERM ONE (06:13)
[2023-02-21] MEDS ORDERED: LACTATED RINGERS 1,000 ML IV SCH (06:13)
[2023-02-21] MEDS ORDERED: MIDAZOLAM 2 MG/2 ML VIAL IVP ONE (06:56)
[2023-02-21] MEDS ORDERED: MIDAZOLAM 2 MG/2 ML VIAL IV PRN (07:00)
[2023-02-21] MEDS ORDERED: fentaNYL (PF) 50 MCG/ML 2 ML AMP IV PRN (07:00)
[2023-02-21] MEDS ORDERED: PROPOFOL 10 MG/ML 20 ML VIAL IV ONE (07:24)
[2023-02-21] MEDS ORDERED: DEXAMETHASONE SOD PHOSPHATE 4 MG/ML 1 ML VIAL ONE (07:24)
[2023-02-21] MEDS ORDERED: LIDOCAINE 2% INJ 20 MG/ML (2 ML VIAL) ONE (07:24)
[2023-02-21] MEDS ORDERED: fentaNYL (PF) 50 MCG/ML 2 ML AMP ONE (07:24)
[2023-02-21] MEDS ORDERED: SUCCINYLCHOLINE CHLORIDE 200 MG/10 ML VIAL IV ONE (07:24)
[2023-02-21] MEDS ORDERED: PHENYLEPHRINE-0.9% NACL SYG 1,000 MCG/10 ML SYRINGE ONE (07:24)
[2023-02-21] MEDS ORDERED: ROPIVACAINE 5 MG/ML 30 ML VIAL ONE (07:24)
[2023-02-21] MEDS ORDERED: ceFAZolin 1,000 MG VIAL IVPB ONE (07:29)
[2023-02-21] MEDS ORDERED: LACTATED RINGERS 1,000 ML IV ONE (09:07)
--- NOTE | 2023-02-21 09:23 | P.OP ---
Date of Procedure: 02/21/23 Preoperative Diagnosis: Right shoulder impingement Postoperative Diagnosis: 1. Right shoulder rotator cuff tear 2. Right shoulder partial long head biceps tendon tear 3. Right shoulder acromioclavicular joint osteoarthritis 4. Right shoulder impingement 5. Right shoulder superficial labral tear Procedure(s) Performed: 1. Right shoulder arthroscopic rotator cuff repair 2. Right shoulder arthroscopic biceps tenodesis 3. Right shoulder arthroscopic Radha procedure 4. Right shoulder arthroscopic subacromial decompression 5. Right shoulder arthroscopic debridement superficial labral tear Implants: 5Arthrex 4.75 swivel lock anchors Anesthesia: GETA, regional (Interscalene block) Surgeon: Frederick Em Gear Shaper #1: Freddie García Estimated Blood Loss (ml): 11 Pathology: none sent Condition: stable Disposition: PACU Indications for Procedure: 62-year-old gentleman seen with progressive right shoulder pain. After treatment options were discussed, he elected to proceed with arthroscopy. Operative Findings: See description of procedure Description of Procedure: Patient underwent an interscalene block by department of anesthesia. The patient was then taken to the operative suite. The patient underwent a general anesthetic by the department of anesthesia. The patient was placed into a lateral position and secured. There was appropriate padding of the bony prominence. Right shoulder was then prepped and draped in normal sterile orthopedic fashion. We placed the extremity in 10 pounds of longitudinal traction. A posterior incision was now made for a posterior working portal site. The trocar and cannula were inserted into the glenohumeral joint. Arthroscopy was initiated. Spinal needle was now inserted anteriorly, to ascertain the ant erior working portal site. An incision was now made in that area, a trocar was inserted followed by a probe. There was some superficial tearing of the superior labrum. There were grade 1 chondromalacia changes of the glenoid fossa without significant osteochondral tears. The humeral head was unremarkable. There was partial tearing of the long head biceps tendon. I debrided out the superficial labral tears with a motorized shaver. I decided post with an arthroscopic biceps tenotomy. I placed a cannula through the anterior portal site. With the assistance of Juanpablo BRAXTON now created a loop tack through the biceps tendon. I now released the biceps tendon. I now punched hole at the junction of the subscapularis and supraspinatus tendon. We now passed the suture through the out of a 4.75 swivel lock anchor. I placed into the pre- punch hole in position while Juanpablo BRAXTON tensioned the suture and deployed the anchor was good fixation noted. Residual suture limb was clipped. We had a stable biceps tenodesis. Instruments were now removed from the glenohumeral joint.] Utilizing the posterior working portal site, the trocar and cannula were inserted into the subacromial space. Arthroscopy initiated. I made an incision 2 fingerbreadths lateral to the acromion. I introduced my trocar followed by my ArthroCare ablator. I now began ablating thick subacromial bursal tissue, which exposed the undersurface of the anterior acromion. There was diminished subacromial space. There was a very prominent anterior acromion. A motorized bur was introduced and a subacromial decompression was performed. I also excised some osteophytes off the inferior aspect of the distal clavicle. The AC joint was visualized and noted to be fairly arthritic. The motorized bur was introduced in the anterior portal site and a Radha procedure was performed without difficulty, decompressing the AC joint nicely. I turned my attention to the rotator cuff. There was a 2.53 cm rotator cuff tear. I debrided the margins getting down to stable tendon tissue. I introduced my motorized bur and abraded the footprint area, getting some petechial bleeding. I now made an accessory portal site off the lateral aspect of the acromion. I punched 2 holes medial for medial row fixation with the assistance of Juanpablo BRAXTON carefully tapping the punch with a mallet as I held the punch and the camera. I now introduced both anchors into the pre-punched holes and Juanpablo BRAXTON tapped them with the mallet as I held anchors and the camera. Juanpablo BRAXTON now screwed the anchors in place a while I held the anchor guide and camera. All 8 limbs of suture were now passed through good bites of rotator cuff tendon. I now punched 2 holes for lateral row fixation again I held the punch and camera while Juanpablo BRAXTON used a mallet to tap in the punch. We now passed sutures through both anchors and individually I introduced the anchors into the pre- punch holes I held the anchor guide in position with one hand holding the camera with the other hand while Juanpablo BRAXTON tensioned the sutures and screwed in the anchors one at a time. All residual suture limbs were now clipped. We had good compression of the tendon along the entire footprint. Instruments now removed from the portal sites. All portal sites were approximated with nylon suture. Sterile dressings were applied followed by a shoulder immobilizer. Freddie BRAXTON assisted in this complex case. The patient was awakened, transferred to a bed, and taken to recovery in stable condition.
[2023-02-21 09:27] VITALS: TEMP 96.8
[2023-02-21 10:08] VITALS: RESP 20
[2023-02-21] MEDS ORDERED: HYDROcodone/APAP 7.5-325MG 1 EACH TAB ONE (10:17)
[2023-02-21] MEDS ORDERED: HYDROcodone/APAP 7.5-325MG 1 EACH TAB PO ONE (10:18)
--- NOTE | 2023-02-21 10:45 | P.ANPRN ---
Procedure Note - Anesthesia - Nerve Block Performed Right Interscalene Single Time Out Performed: Yes Date of Procedure: 02/21/23 Procedure Start Time: 06:55 Procedure Stop Time: 07:04 Location of Patient: PreOp Indication: Acute Post-Operative Pain, Requested by Surgeon Sedation Type: Sedate with meaningful contact maintained Preparation: Sterile Prep, Sterile Dressing Position: Sitting Catheter: None Needle Types: Facet Needle Gauge: 21 Ultrasound used to visualize needle placement: Yes Ultrasound used to observe medication spread: Yes Injectate: 0.5% Ropivacaine (see comment for volume) (30 ml + decadron 4 mg) Blood Aspirated: No Pain Paresthesia on Injection Noted: No Resistance on Injection: Normal Image Stored and Saved: Yes Events: Uneventful and Well Tolerated
[2023-02-21 10:52] VITALS: BP 128/75; PULSE 87
== END 2023-02-21 11:23 | disposition home or self-care (01) ==
LOC: OR 05:39
PROVIDERS: ATTEND Orthopaedic Surgery
DX: M75.41 Impingement syndrome of right shoulder (principal); M75.101 Unspecified rotator cuff tear or rupture of right shoulder, not specified as traumatic; M19.011 Primary osteoarthritis, right shoulder; S43.401A Unspecified sprain of right shoulder joint, initial encounter; I10 Essential (primary) hypertension; G89.18 Other acute postprocedural pain; Z88.8 Allergy status to other drugs, medicaments and biological substances; K21.9 Gastro-esophageal reflux disease without esophagitis; Z79.899 Other long term (current) drug therapy; X58.XXXA Exposure to other specified factors, initial encounter
CPT/HCPCS: 29827; 29824; 29826; 64415; 76942; C1713 ×2; J2250; J0330; J1100; J2405; J0690; J3010; J2795; J2370; J2704; J2001